=== PATIENT | male | born 1995 | race Caucasian/White ===

== ENCOUNTER 2025-05-14 08:37 | Emergency (ER) | payer BC, SELFPAY ==
--- OUTSIDE RECORDS SUMMARY | 2025-05-14 08:45 | XMS_ITS | Clinical Summary ---
Author Organization [facility] Address [address] [place] [address] Phone Care Team Providers Care Quill Skinner Name Role Phone Brad Tucker MD Primary Care Provider [phone] Allergies No known active allergies Medications OMEPRAZOLE PO Take by mouth. Active Active Problems No known active problems Social History Tobacco Use Types Packs/Day Years Used Date Smoking Tobacco: Never Smokeless Tobacco: Never Tobacco Cessation:Counseling Given: Not Answered Alcohol Use Standard Drinks/Week Comments Not Currently 0 (1 standard drink = 0.6 oz pur e alcohol) Sex and Gender Information Value Date Recorded Sex Assigned at Not on file Legal Sex Male 9:35 PM CDT Gender Identity Not on file Sexual Orientation Not on file Last Filed Vital Signs Vital Sign Reading Time Taken Comments Blood Pressure 116/72 10/24/2022 3:59 PM TEMPERATURE REGULATOR Pulse 63 10/24/2022 3:59 PM TEMPERATURE REGULATOR Temperature 36.8 C (98.3 F) 10/24/2022 3:59 PM TEMPERATURE REGULATOR Respiratory Rate 20 10/24/2022 3:59 PM TEMPERATURE REGULATOR Oxygen Saturation 100% 10/24/2022 3:59 PM TEMPERATURE REGULATOR Inhaled Oxygen Concentration - - Weight 99.8 kg (220 lb) 10/24/2022 3:59 PM TEMPERATURE REGULATOR Height - - Body Mass Index - - Plan of Treatment Health Maintenance Due Date Last Done Comments Hepatitis C Virus (HCV) Screening 1996 TdaP Immunization 1996 Hepatitis B Immunization (1 of 3 - 19+ 3-dose series) 2015 Human Papillomavirus (HPV) Immunization (1 - 3-dose SCDM series) 2023 SARS-COV-2 Immunization (2023- season) 2024 Influenza Immunization (#1) 2025 06/08/2018 Respiratory Syncytial Virus (RSV) Immunization (Adult) (1 - 1-dose 75+ series) 2071 Meningococcal Immunization (ACWY) Aged Out No longer eligible based on patient's age to complete this topic Pneumococcal Immunization Combined Aged Out No longer eligible based on patient's age to complete this topic Rotavirus Immunization Aged Out No lo nger eligible based on patient's age to complete this topic Care Teams Quill Skinner Relationship Specialty Start Date End Date Brad Tucker MD [address] [place] [address] PCP - General Internal Medicine 07/27/16
--- OUTSIDE RECORDS SUMMARY | 2025-05-14 08:45 | XMS_ITS | Clinical Summary ---
Author Organization [facility] Address [address] [facility] [address] [place] [address] Phone Care Team Providers Care Acid Leveler Name Role Phone Brad Tucker MD Primary Care Provider [phone] Allergies No known active allergies Medications simethicone (GAS-X ORAL) Take by mouth Act miller fluticasone propionate (FLONASE) 50 mcg/actuation nasal sprayIndicatio ns:Dysfunction of left eustachian tube Administer 2 sprays into each nostril daily 1 each 4 Active Additional Information Patient taking differently:2 spray each nostrilDaily PRN, rhinitis, allergies, Reported on 03/25/2025 hydrOXYzine (ATARAX) 25 mg tablet Take 1 tablet (25 mg total) by mouth every 8 (eight) hours as needed for anxiety 30 tablet 2 5 Active buPROPion XL (WELLBUTRIN XL) 150 mg 24 hr tablet Take 1 tablet (150 mg total) by mouth every morning 90 tablet [address] (PROTONIX) 40 mg EC tablet Take 1 tablet (40 mg total) by mouth daily 90 tablet [address] (PROTONIX) 40 mg EC tablet Take 1 tablet (40 mg total) by mouth daily 90 tablet 4 07/ 025 Discontin ued(Reord er) Active Problems Problem Noted Date Diagnosed Date Seasonal allergic rhinitis due to pollen 024 Assessment & Plan (07/02/2024 8:59 AM CDT): Blood allergy testing Nasal saline spray (Simply saline, Little Remedies, [place], [place]) 2 second sprays or 2 squeezes into each nostril while looking down over the sink, do not need to sniff in. Followed by Flonase 2 sprays into each nostril while looking down over the sink, do not sniff in or blow nose after use for at least 30 minutes daily Hearing test Dysfunction of left eustachian tube 07/02/2024 Assessment & Plan (07/02/2024 8:59 AM CDT): Blood allergy testing Nasal saline spray (Simply saline, Little Remedies, [place], [place]) 2 second sprays or 2 squeezes into each nostril while looking down over the sink, do not need to sniff in. Followed by Flonase 2 sprays into each nostril while looking down over the sink, do not sniff in or blow nose after use for at least 30 minutes daily Hearing test Dizziness 07/02/2024 Assessment & Plan (07/02/2024 9:00 AM CDT): Blood allergy testing Nasal saline spray (Simply saline, Little Remedies, [place], [place]) 2 second sprays or 2 squeezes into each nostril while looking down over the sink, do not need to sniff in. Followed by Flonase 2 sprays into each nostril while looking down over the sink, do not sniff in or blow nose after use for at least 30 minutes daily Hearing test Tinnitus 07/02/2024 Assessment & Plan (07/02/2024 9:00 AM CDT): Blood allergy testing Nasal saline spray (Simply saline, Little Remedies, [place], [place]) 2 second sprays or 2 squeezes into each nostril while looking down over the sink, do not need to sniff in. Followed by Flonase 2 sprays into each nostril while looking down over the sink, do not sniff in or blow nose after use for at least 30 minutes daily Hearing test Gastroesophageal reflux disease 04/22/2024 Assessment & Plan (04/22/2024 3:52 PM CDT): Ordered Protonix 40 mg daily, referred to GI. Avoid provocative foods and drinks. Encouraged to stop vaping. Nicotine dependence due to vaping non-tobacco pr oduct 04/22/2024 Assessment & Plan (04/22/2024 2:04 PM CDT): Patient encouraged to stop vaping as it can be contributing to his acid reflux Calculus of gallbladder with acute cholecystitis without obstruction 01/30/2019 Assessment & Plan (01/30/2019 4:35 PM CDT): Patient was offered three options- surgery of lap kenneth with possible reduced success rate from atypical symptoms, a food and symptoms diary log, or a referral to GI. Patient would like to trial a food and symptoms diary and will follow up as needed and call at a later date with his wishes. Tinea versicolor 03/23/2016 Overview (01/12/2017): Tinea versicolor Anxiety 03/23/2016 Overview (01/12/2017): Anxiety Assessment & Plan (04/22/2024 5:04 PM CDT): Anxiety with associated dizziness and palpitations. Reports moderately controlled with use of CBT. Declines medication treatment. Will continue to monitor. Palpitations 03/23/2016 Overview (01/12/2017): Heart palpitations Heartburn 01/17/2016 Overview (01/12/2017): Heartburn Acute tonsillitis 09/03/2015 Overview (01/11/2017): Acute tonsillitis, unspecified etiology Resolved Problems Problem Noted Date Diagnosed Date Resolved Date Annual physical exam 04/22/2024 025 Assessment & Plan (04/22/2024 1:56 PM CDT): Visit preventive in nature. We reviewed medications, chronic conditions, risk factors, lifestyle recommendations. Reviewed immunization recommendations. Return in 1 year for annual wellness. Tobacco dependence syndrome 01/17/2016 04/22/2024 Overview (01/12/2017): Tobacco use disorder Encounters Date Type Department Care Team Description 03/25/2025 9:30 AM CDT [facility] [address] [place] [employer] [place] [address] Edith Loo NP Anxiety (Primary Dx); Class 1 obesity due to excess calories with serious comorbidity and body mass index (BMI) of 32.0 to 32.9 in adult; Annual physical exam from Last 3 Months Immunizations Immunization Administration Dates Next Due Influenza, Unspecified 01/06/2024(Deferr ed: Patient Refused),10/11/2021(Deferred: Patient Refused),07/08/2020(Deferred: Patient Refused),06/08/2018,06/08/2018 Surgical History Surgery Date Site/Laterality Comments OTHER SURGICAL HISTORY reset right broken arm Medical History Medical History Date Comments Anxiety GERD (gastroesophageal reflux disease) 2019 Family History Medical History Relation Name Comments Other Brother 2 Alive and well; Diabetes Father Scott Lovelace Hypertension Father Scott Lovelace Hypertension; Other Father Scott Lovelace Alive and wel l; Other Sister x2 Alive and well; Relation Name Status Comments Brother 1 Alive Brother 2 Father Scott Lovelace Alive Mother Alive Sister x2 Alive Social History Tobacco Use Types Packs/Day Years Used Date Smoking Tobacco: Former E-cigarettes Vaping Smokeless Tobacco: Current Snuff Tobacco Cessation:Ready to Q uit: Not Asked; Counseling Given: Not Answered Comments:Smoking History Packs/day: 10 Cigarettes Alcohol Use Standard Drinks/Week Comments No 0 (1 standard drink = 0.6 oz pur e alcohol) PHQ-2 Answer Date Recorded PHQ-2 Total Score (If total score is 3 or more points, staff should administer the PHQ-9) 0 04/22/2024 Sex and Gender Information Value Date Recorded Sex Assigned at Not on file Legal Sex Male 8:32 AM CONSULTING INTERN Gender Identity Not on file Sexual Orientation Not on file Obstetrics History Last Filed Vital Signs Vital Sign Reading Time Taken Comments Blood Pressure 122/78 07/02/2024 8:29 AM CDT Pulse 69 07/02/2024 8:29 AM CDT Temperature 36.2 C (97.1 F) 07/02/2024 8:29 AM CDT Respiratory Rate 18 04/22/2024 1:00 PM CDT Oxygen Saturation 97% 07/02/2024 8:2 9 AM CDT Inhaled Oxygen Concentration - - Weight 104.3 kg (230 lb) 03/25/2025 9:2 4 AM CDT patient reported Height 180.3 cm (5' 10.98) 03/25/2025 9:24 AM CDT Body Mass Index 32.09 03/25/2025 9:24 AM CDT Plan of Treatment Health Maintenance Due Date Last Done Comments Hepatitis C Screening 1996 DTaP/Tdap/Td Vaccine (1 - Tdap) 2007 Varicella Vaccines (1 of 2 - 13+ 2-dose series) 2009 Hepatitis B Screening 2014 HPV Vaccines (1 - 3-dose SCDM series) 2023 Depression Screening 04/22/2025 04/22/2024, 10/11/2021, 12/26/2018, Additional history exists Regular Well Visit/Exam 18-64 04/22/2025 04/22/2024, 03/30/2017 Influenza Vaccine (#1) 2025 06/08/2018, 2017 Pneumococcal vaccine <65 Aged Out No longer eligible based on patient's age to complete this topic Insurance DR [id number] [employer] Care Teams Acid Leveler Relationship Specialty Start Date End Date Brad Tucker MD [address] [place] [address] PCP - General Family Medicine 03/21/17
[2025-05-14 08:46] VITALS: BP 130/76; PULSE 83; RESP 16; TEMP 36.7; O2SAT 100
[2025-05-14 08:50] VITALS: RESP 18; O2SAT 100
--- NOTE | 2025-05-14 09:19 | ECG_ITS ---
Test Date: 2025-05-14 09:28:00 Measurements Intervals [place] Rate: 80 P: 39 TX: 153 QRS: 17 QRSD: 109 T: 14 QT: 367 QTc: 424 Interpretive Statements SINUS RHYTHM WITH SINUS ARRHYTHMIA INCOMPLETE RIGHT BUNDLE BRANCH BLOCK BORDERLINE ECG No previous ECG available for comparison Electronically Signed On 05-14-2025 10:08:50 CDT by Obed Cota D.O.
--- NOTE | 2025-05-14 09:29 | ED.GENADULT ---
HPI - General Adult General Chief complaint: Unspecified Stated complaint: Blood Pressure Problem Time Seen by Provider: 05/14/25 09:00 Source: patient and RN notes reviewed Mode of arrival: ambulatory Limitations: no limitations History of Present Illness HPI narrative: 30-year-old male presents to the [facility] complaining of high blood pressure. Patient states took his blood pressure this morning the initial was 140 systolic and in to go on immediately and said it was 160/110. Patient has no diagnosis of hypertension has been taking his blood pressure frequently recently because he has a family history of hypertension. Patient said he developed chest tightness after he noticed his blood pressure was that high. Patient said the chest tightness has improved but he still feels some a little bit patient denies any headache, blurry vision, dizziness, lightheadedness, weakness or any other symptoms. Patient says he is under lot of stress leave the reports going to be a Dad next week. Patient has a history of anxiety. Patient's blood pressure 130/76 today in clinic. Related Data Allergies Allergy/AdvReac Type Severity Reaction Status Date / Time No Known Allergies Allergy Verified 05/14/25 09:05 Review of Systems Review of Systems: CONSTITUTIONAL: Denies fever, chills, or sweats. EYES: Denies visual changes, redness, or discharge. ENT: Denies rhinorrhea, congestion, sore throat, or otalgia. CARDIOVASCULAR: Positive for chest tightness. Negative for dizziness, lightheadedness, palpitations, or edema. RESPIRATORY: Denies cough or dyspnea. GASTROINTESTINAL: Denies abdominal pain, nausea, vomiting, or diarrhea. GENITOURINARY: Denies dysuria or hematuria. SKIN: Denies rash or itching. MUSCULOSKELETAL: Denies back pain, joint pain, or myalgia. NEUROLOGIC: Denies headache, loss of consciousness numbness, or weakness. PSYCHIATRIC: Denies anxiety or depression. All other systems reviewed are negative, except as documented in HPI. PMFSH Comments At the time of my signature, I reviewed and agree with the nursing past medical, surgical, social, and family history. There is no relevant family history pertinent to the patient complaint. Exam Narrative: GENERAL: This is a well-nourished, well-developed adult, in no apparent distress. They are non ill-appearing, nontoxic appearing. Patient is anxious but calmed with reassurance. HEAD: normocephalic, atraumatic. EYES: Sclera clear/white. Conjunctiva normal. Vision is grossly intact. Extraocular movements intact. Pupils PERRLA. EARS: External ears normal, Hearing grossly intact. NOSE: External nose normal THROAT: Mucous membranes moist, NECK: Neck supple, CARDIOVASCULAR: Regular rate and rhythm without murmurs, gallops, or rubs. RESPIRATORY: Clear to auscultation. Breath sounds equal bilaterally. No wheezes, rales, or rhonchi. SKIN: warm, Dry, intact with no suspicious lesions or rash, good texture and turgor. NEURO: awake, alert, and oriented to person, place and time. There were no obvious focal neurologic abnormalities. Cranial nerves 2-12 grossly intact. EXTREMITIES: No joint tenderness, effusion, or edema noted. Course Course Emergency Course: Portions of this record may have been created with voice recognition software Level of Care: Express Care Visit Vital Signs Vital signs: Vital Signs Temperature 98.1 F 05/14/25 08:46 Pulse Rate 83 05/14/25 08:46 Respiratory Rate 16 05/14/25 08:46 Blood Pressure 130/76 05/14/25 08:46 Pulse Oximetry 100 05/14/25 08:46 Oxygen Delivery Room Air 05/14/25 08:46 Temperature 98.1 F 05/14/25 08:46 Pulse Rate 83 05/14/25 08:46 Respiratory Rate 18 05/14/25 08:50 Blood Pressure 130/76 05/14/25 08:46 Pulse Oximetry 100 05/14/25 08:50 Oxygen Delivery Room Air 05/14/25 08:46 Reviewed Medical Decision Making MDM Narrative Medical decision making narrative: EKG sinus rhythm with sinus arrhythmia, no ischemic findings. Patient's chest tightness has resolved while he was at clinic with reassurance. Patient is under a lot of stress lately. Symptoms likely related to anxiety. Patient has very mild elevation blood pressure today. The patient may have masked hypertension given readings at home today. Recommend patient to log his blood pressure daily and follow-up with his PCP. Discussed importance of exercise, weight loss, diet, and stress control to help manage blood pressure. [place] heart score 1, low suspicion of CAD. Patient has no risk factors. Patient nonsmoker. Discussed physical exam findings. Advised supportive measures and signs/symptoms to go to the ER. Pt is appropriate for outpt treatment and f/u. Differential Diagnosis Differential Diagnosis: Hypertension, elevated blood pressure reading, anxiety, masked hypertension, white coat syndrome Vital Signs Vital Signs: Vital Signs Temperature 98.1 F 05/14/25 08:46 Pulse Rate 83 05/14/25 08:46 Respiratory Rate 16 05/14/25 08:46 Blood Pressure 130/76 05/14/25 08:46 Pulse Oximetry 100 05/14/25 08:46 Oxygen Delivery Room Air 05/14/25 08:46 Temperature 98.1 F 05/14/25 08:46 Pulse Rate 83 05/14/25 08:46 Respiratory Rate 18 05/14/25 08:50 Blood Pressure 130/76 05/14/25 08:46 Pulse Oximetry 100 05/14/25 08:50 Oxygen Delivery Room Air 05/14/25 08:46 ECG Data EKG #1: ECG completion date: 05/14/25 ECG completion time: 09:28 Prior ECG tracings: not available for review EKG Interpretation: normal rate, sinus rhythm, no ectopy, no ST changes, normal QT, NL axis, other (Sinus arrhythmia) and no acute changes Critical Care Time Critical Care Time Critical Care Time: No Discharge Plan Discharge Clinical Impression: Elevated blood pressure reading without diagnosis of hypertension Patient Disposition: Home Condition: Stable Instructions: How to Take a Blood Pressure Reading (ED), Hypertension (ED) Additional Instructions: Your EKG is normal today. Make sure your resting 3-5 minutes prior to checking her blood pressure, check your blood pressure once a day. Log your blood pressure daily and take it to your doctor's appointment. Limit your salt intake to less than 2-4 g of salt a day. Increase your exercise. Follow-up with your PCP in 3-5 days. If your blood pressure is greater than 180/100, you have severe headaches, vision problems, severe chest pains, breathing problems, dizziness, or any serious concerns please go to the ER immediately. Patient Language: Croatian Follow-up/Referrals: Caitlin,Brad Cuello M.D. [Primary Care Provider] - Time of Disposition: 09:38
== END 2025-05-14 09:40 | disposition home or self-care (01) ==
PROVIDERS: PCP Family Medicine
DX: R03.0 Elevated blood-pressure reading, without diagnosis of hypertension (principal)
CPT/HCPCS: 93005; 99213; G0463